=== PATIENT | female | born 2000 | race American Indian/Alaskan Native ===

== ENCOUNTER 2022-04-04 17:42 | Outpatient (CLI) | payer MEDICAID, OTHER ==
[2022-04-04 19:25] VITALS: BP 113/55
[2022-04-04 22:13] LABS: Amphetamine Screen,Urine Negative; Benzodiazepines Screen,Urine Negative; Cannabinoid Screen,Urine Negative; Cocaine Screen,Urine Negative; Methadone Screen,Urine Negative; Opiate Screen,Urine Negative
--- NOTE | 2022-04-05 00:40 | Ultrasound Report ---
US OB follow up INDICATION / CLINICAL INFORMATION: Gestational Age, EFW, GEOVANI COMPARISON: None available. TECHNIQUE: Using a transcutaneous probe, multiple grayscale, color Doppler, and spectral Doppler imag es of the uterus and fetus were captured and stored. FINDINGS: Single cephalic fetus heart rate 145 bpm. Amniotic fluid amount is grossly normal. Maternal cervix measures 5.6 cm. Cervix appears closed. The endocervical canal not well visualized on the provided images. Biparietal Diameter = 4.8 cm = 20.4 weeks, days Head Circumference = 18.8 cm = 21.0 weeks, days Abdominal Circumference = 16.1 cm = 21.1 weeks, days Femur Length = 3.8 cm = 22.2 weeks, days Average Ultrasound Age (AUA) = 21.2 weeks, days. EDC 08/13/2022. Clinical estimated gestational age based on LMP of 11/24/2021 is 18 weeks 5 days. Estimated weight = 433 g.. IMPRESSION: 1. Single living fetus as detailed. 2. Maternal cervix is normal in length. Signer Name: Bruce Gabriel II, MD Signed: 04/05/2022 12:35 AM Workstation Name: [id number]
== END 2022-04-04 23:08 | disposition home or self-care (01) ==
LOC: TRG 17:42 → APU 17:45 → TRG 23:08
PROVIDERS: ATTEND Obstetrics & Gynecology
DX: O26.892 Other specified pregnancy related conditions, second trimester (principal); R10.9 Unspecified abdominal pain; Z3A.23 23 weeks gestation of pregnancy
CPT/HCPCS: 76816; 80307

== ENCOUNTER 2022-05-31 11:28 | Outpatient (CLI) | payer MEDICAID ==
[2022-05-31 12:45] VITALS: BP 119/69
--- NOTE | 2022-05-31 13:02 | Event Note ---
Date: 05/31/22 pt just seen in office for appt this morning by myself, she did not mention fall. Pt states "it slipped by mind," pt also concerned about frequent movement at night keeping her from sleeping. pt states she her clothes are wet after falling in shower and hitting her right side but that she also came from a dental office. pt c/o bruising. she also discussed concern over roommate's issues and anxiety, again she denied having any issues herself but being worried about her roommates health problems effecting her baby. assessed by MARCEL hammond and myself, no signs of bruising or injury. abd palpated soft. Blood type A+. will monitor x 4 hours.
[2022-05-31] MEDS ORDERED: LACTATED RINGERS 500 ML IV ONE (18:00)
== END 2022-05-31 16:58 | disposition home or self-care (01) ==
LOC: TRG 11:28 → APU 11:36 → TRG 16:58
PROVIDERS: ATTEND Obstetrics & Gynecology
DX: O26.893 Other specified pregnancy related conditions, third trimester (principal); Z3A.28 28 weeks gestation of pregnancy; W18.2XXA Fall in (into) shower or empty bathtub, initial encounter; Y93.89 Activity, other specified; Y92.89 Other specified places as the place of occurrence of the external cause; Y99.8 Other external cause status
CPT/HCPCS: 59025